=== PATIENT | female | born 1970 | race Caucasian/White ===

== ENCOUNTER 2018-02-14 21:53 | Emergency (ER) | payer MEDICAID ==
[2018-02-15 01:02] LABS: BASOPHIL % 0.4 % (0-2); PLATELET COUNT 205 x10^3mcL (130-400)
[2018-02-15 01:06] LABS: CALCIUM 8.5 mg/dL (8.5-10.1); CARBON DIOXIDE 27.9 mmol/L (21-32); CHLORIDE SERUM 103 mmol/L (98-107); CREATININE SERUM 0.8 mg/dL (0.6-1.0); GFR1 > 60 mL/min; GLUCOSE SERUM 151 mg/dL (74-106); SODIUM SERUM 138 mmol/L (136-145)
[2018-02-15 01:07] LABS: LIPASE 173 IU/L (73-393)
[2018-02-15 02:14] VITALS: BP 127/70
== END 2018-02-15 02:14 | disposition home or self-care (01) ==
LOC: ED 21:53
PROVIDERS: Emergency Medicine
DX: K46.9 Unspecified abdominal hernia without obstruction or gangrene (principal); E66.9 Obesity, unspecified; E11.9 Type 2 diabetes mellitus without complications; Z90.49 Acquired absence of other specified parts of digestive tract; Z88.0 Allergy status to penicillin
CPT/HCPCS: 36415; Q0162

== ENCOUNTER 2018-09-21 10:04 | Emergency (ER) | payer MEDICAID ==
[~2018-09-21] VITALS: Ht 152.4 cm; Wt 100.5 kg
[2018-09-21 10:13] VITALS: Ht 152.4 cm; Wt 100.5 kg
[2018-09-21 11:18] VITALS: BP 123/71
== END 2018-09-21 11:18 | disposition home or self-care (01) ==
LOC: ED 10:04
DX: J20.9 Acute bronchitis, unspecified (principal); E11.9 Type 2 diabetes mellitus without complications; Z88.0 Allergy status to penicillin

== ENCOUNTER 2019-10-18 19:59 | Emergency (ER) | payer MEDICAID ==
[~2019-10-18] VITALS: Ht 167.6 cm; Wt 103.9 kg
[2019-10-18 20:07] VITALS: Ht 167.6 cm; Wt 103.9 kg
[2019-10-18 20:49] VITALS: BP 139/79
== END 2019-10-18 20:49 | disposition home or self-care (01) ==
LOC: ED 19:59
DX: B02.9 Zoster without complications (principal); E11.9 Type 2 diabetes mellitus without complications; Z88.0 Allergy status to penicillin

== ENCOUNTER 2020-02-23 12:05 | Emergency (ER) | payer MEDICAID ==
[~2020-02-23] VITALS: Ht 165.1 cm; Wt 101.6 kg
[2020-02-23 12:21] VITALS: Ht 165.1 cm; Wt 101.6 kg
[2020-02-23 13:36] VITALS: BP 115/78
== END 2020-02-23 13:36 | disposition home or self-care (01) ==
LOC: ED 12:05
DX: M54.12 Radiculopathy, cervical region (principal); M79.602 Pain in left arm; E11.9 Type 2 diabetes mellitus without complications; E78.00 Pure hypercholesterolemia, unspecified
CPT/HCPCS: J1885